=== PATIENT | female | born 1990 | race Caucasian/White ===

== ENCOUNTER 2019-05-01 11:10 | Outpatient (CLI) | payer BC ==
[~2019-05-01] VITALS: Ht 152.4 cm; Wt 67.7 kg
[2019-05-01 11:24] VITALS: Ht 152.4 cm; Wt 67.7 kg
--- NOTE | 2019-05-01 13:21 | TRIAGE ---
OB Triage Datetime Report Generated by CPN: 05/01/2019 13:20 Datetime: 05/01/2019 13:00 Stage of : OB Triage Maternal Assessment Level of Consciousness: Keenly Alert, Responsive DTR's/Clonus: DTRs 1+ Headache: Denies Breath Sounds, Left: Clear and Equal Breath Sounds, Right: Clear and Equal Nausea/Vomiting: Denies RUQ Epigastric Pain: Denies Labor Evaluation Frequency: IRREGULAR Monitor Mode: External Duration (sec)2399: 50-90 Quality: Mild Pattern: Normal: <= 5 Contractions in 10 Minutes Resting Tone [place]: Relaxed Heart Rate FHR Baseline Rate: 130 Monitor Mode: External US Variability: Moderate 6-25 bpm Accelerations: 15X15 Decelerations: None Category: Category I Pain Assessment Pain Scale: 0 Pain Presence: None/Denies Pain Type: N/A Pain Goal: 3 Membrane Status: Intact Datetime: 05/01/2019 11:59 Maternal Assessment Level of Consciousness: Keenly Alert, Responsive DTR's/Clonus: DTRs 1+ Headache: Denies Blurred Vision: No Respiratory Effort: Unlabored Breath Sounds, Left: Clear and Equal Breath Sounds, Right: Clear and Equal Nausea/Vomiting: Denies RUQ Epigastric Pain: Denies Facial Edema: None Labor Evaluation Frequency: X4 Monitor Mode: External Duration (sec)2399: 50-90 Quality: Mild Pattern: Normal: <= 5 Contractions in 10 Minutes Resting Tone [place]: Relaxed Heart Rate FHR Baseline Rate: 130 Monitor Mode: External US Variability: Moderate 6-25 bpm Accelerations: 15X15 Decelerations: None Category: Category I Pain Assessment Pain Scale: 0 Pain Presence: None/Denies Pain Type: N/A Pain Goal: 3 Membrane Status: Intact Datetime: 05/01/2019 11:16 EGA: 39.4 Datetime: 05/01/2019 11:15 Vaginal Exam Dilatation (cms): 1.0 Effacement (%): 50 Station: -2 Exam By: STU MACHUCA Vaginal Bleeding: None Cervix, Consistency: Soft Cervix, Position: Anterior Presentation 'A': Cephalic Datetime: 05/01/2019 11:10 Assessment Type: Triage Maternal Assessment Level of Consciousness: Keenly Alert, Responsive DTR's/Clonus: DTRs 2+; No Clonus Headache: Denies Blurred Vision: No Respiratory Effort: Unlabored; Regular Rhythm; Equal Expansion Breath Sounds, Left: Clear and Equal Breath Sounds, Right: Clear and Equal Nausea/Vomiting: Denies RUQ Epigastric Pain: Denies Lower Extremities Edema: None Degree: None Upper Extremities Edema: None Degree: None Facial Edema: None Fall Risk Assessment History of Falling: (0) No Secondary Diagnosis: (0) No Ambulatory Aid: (0) Bedrest/Nurse Assist IV Therapy: (0) No Gait: (0) Normal/Bedrest/Immobile Mental Status: (0) Oriented to Own Ability Fall Score: 0 Fall Risk Score Definition: No Risk: No action required Datetime: 05/01/2019 11:02 Time of Arrival: 05/01/2019 11:02 Arrived By: Ambulatory Arrived From: Home Chief Complaint: PT CAME IN FROM HOME C/O SPOTTING AFTER HAVING SEX LAST NIGHT. PT STATES + M OVEMNT AND DENIES ANY UC'S AT THIS TIME Movement: Present Contractions: Denies/Absent Rupture of Membranes: Denies Vaginal Discharge: Denies Recent Sexual Intercouse: Denies Abdominal Trauma: Not Applicable Patient Complaints: Other Additional Patient Complaints: NONE Initial Plan: NST AND BPP
== END 2019-05-01 13:10 | disposition home or self-care (01) ==
LOC: OBT 11:10 → L-D 11:12 → OBT 13:10
PROVIDERS: ATTEND Obstetrics & Gynecology
DX: O62.9 Abnormality of forces of labor, unspecified (principal); Z3A.39 39 weeks gestation of pregnancy
CPT/HCPCS: 76818; Z7500; G0463

== ENCOUNTER 2019-05-02 00:14 | Inpatient (IN) | payer BC ==
--- NOTE | 2019-05-01 15:50 | PN ---
Triage Information Date/Time Subjective: 29 year-old G1 at 39.4 weeks gestation presents to triage with contractions. Objective: Vitals: stable General: No apparent distress Abdomen: Gravid SVE: Closed per RN x2 BPP 06/01 Assessment/Plan: 1. Contractions-resolved. expectant Disposition: discharge to home Reason for visit: Uterine contractions Weeks of Gestation 39.4 /Para 1 MILESTWESLEY,WILLOW RICH May 01, 2019 15:50
[~2019-05-02] VITALS: Ht 152.4 cm; Wt 86.9 kg
[2019-05-02 00:25] VITALS: BP 114/75; PULSE 78; RESP 16
[2019-05-02] MEDS ORDERED: LACTATED RINGER'S 1,000 ML IV PRN (00:54)
--- NOTE | 2019-05-02 00:58 | TRIAGE ---
OB Triage Datetime Report Generated by CPN: 05/02/2019 00:58 Datetime: 05/02/2019 00:49 Membrane Status: Ruptured Datetime: 05/02/2019 00:45 Stage of : OB Triage Monitor Mode: External FHR Baseline Rate: 165 Monitor Mode: External US FHR Baseline Changes: Tachycardia Variability: Moderate 6-25 bpm Accelerations: 15X15 Decelerations: None Dilatation (cms): 2.0 Effacement (%): 70 Station: -2 Exam By: Rhonda Dempsey Membrane Status: Ruptured Membranes Rupture Method: Spontaneous Amniotic Fluid Color: Clear Amniotic Fluid Amount: Moderate Amniotic Fluid Odor: Normal Vaginal Bleeding: None Pool: Positive Cervix, Consistency: Soft Cervix, Position: Posterior Presentation 'A': Cephalic Datetime: 05/02/2019 00:19 Stage of : OB Triage Level of Consciousness: Keenly Alert, Responsive Headache: Denies Blurred Vision: No Nausea/Vomiting: Denies RUQ Epigastric Pain: Denies Facial Edema: None Monitor Mode: External Resting Tone [place]: Relaxed Monitor Mode: External US Comments: FHR 165 Pain Scale: 6 Pain Presence: Intermittent Pain Type: Cramping Pain Location: Abdomen; Back Datetime: 05/02/2019 00:14 Time of Arrival: 05/02/2019 00:05 EGA: 39.5 Arrived By: Ambulatory Arrived From: Home Chief Complaint: c/o ucs and SROM at 2200 Contractions: Regular Time Contractions Began: 05/01/2019 23:00 Rupture of Membranes: Unsure Vaginal Bleeding: None Vaginal Discharge: Present Recent Sexual Intercouse: Denies Abdominal Trauma: Not Applicable Patient Complaints: Contractions Time Provider Notified: 05/02/2019 00:45 Provider Notified: Dr Brown Initial Plan: TYRON LOPEZ
[2019-05-02] MEDS ORDERED: OXYTOCIN 30 UNITS/LR 500 ML IV SCH ×2 (01:00)
[2019-05-02] MEDS ORDERED: CARBOPROST 250 MCG INJ IM PRN ×2 (01:00→15:00)
[2019-05-02] MEDS ORDERED: LIDOCAINE 1% (MPF) 30 ML INJ INJ PRN (01:00)
[2019-05-02] MEDS ORDERED: IBUPROFEN 600 MG TAB PO PRN (01:00)
[2019-05-02] MEDS ORDERED: MINERAL OIL LIGHT 10 ML VIAL TOP ONE (01:00)
[2019-05-02] MEDS ORDERED: METHYLERGONOVINE 0.2 MG INJ IM PRN ×2 (01:00→15:00)
[2019-05-02] MEDS ORDERED: OXYTOCIN 30 UNITS/LR 500 ML IV PRN ×2 (01:00→15:00)
[2019-05-02] MEDS ORDERED: MISOPROSTOL 200 MCG TAB PR PRN ×2 (01:00→15:00)
[2019-05-02] MEDS ORDERED: BUTORPHANOL 2 MG INJ IV PRN ×2 (01:00)
[2019-05-02] MEDS: LACTATED RINGER'S 1,000 ML IV SCH ×4 (01:25→13:12)
--- NOTE | 2019-05-02 06:21 | PREAC ---
Date/Time of Note Date/Time of Note DATE: 05/02/19 TIME: 06:20 Anesthesia Eval and Record Evaluation Time Pre-Procedure Interview DATE: 05/02/19 TIME: 06:20 Age 29 Sex female NPO: 8 hrs Preoperative diagnosis IUP Planned procedure L&D Epidural Past Medical History Past Medical History: Includes GI: Obesity : : Surgery & Anesthesia Issues No known issue Meds Anticoagulation: No Beta Olivier within 24 hr: No Reason Beta Olivier not given: Pt. not on B-Olivier No Active Prescriptions or Reported Meds Current Medications Lactated Ringer's 1,000 ml @ 125 mls/hr Q8H IV Last administered on 05/02/19at 01:25; Admin Dose 125 MLS/HR; Start 05/02/19 at 00:54 Butorphanol Tartrate (Stadol) 1 mg Q2H PRN IV .PAIN SCALE 1-5; Start 05/02/19 at 01:00 Butorphanol Tartrate (Stadol) 2 mg Q2H PRN IV .PAIN SCALE 6-10 Last administered on 05/02/19at 04:26; Admin Dose 2 MG; Start 05/02/19 at 01:00 Lidocaine (Xylocaine 1% (Mpf)) 30 ml ONCE PRN INJ .EPISIOTOMY; Start 05/02/19 at 01:00 Oxytocin/Lactated Ringer's 500 ml @ 500 mls/hr ONCE POST IV ; Start 05/02/19 at 01:00 Oxytocin/Lactated Ringer's 500 ml @ 125 mls/hr POST IV ; Start 05/02/19 at 01:00 Ibuprofen (Motrin) 600 mg ONCE PRN PO .PAIN 1-5; Start 05/02/19 at 01:00 Lactated Ringer's 1,000 ml @ 2,000 mls/hr Q30M PRN IV .ANESTHESIA Last admi nistered on 05/02/19at 06:08; Admin Dose 2,000 MLS/HR; Start 05/02/19 at 00:54 Oxytocin/Lactated Ringer's 500 ml @ 0 mls/hr ONCE PRN IV .VAGINAL BLEEDING; Start 05/02/19 at 01:00 Methylergonovine Maleate (Methergine) 0.2 mg ONCE PRN IM .VAGINAL BLEEDING; Start 05/02/19 at 01:00 Carboprost Tromethamine (Hemabate) 250 mcg ONCE PRN IM .VAGINAL BLEEDING; Start 05/02/19 at 01:00 Misoprostol (Cytotec) 1,000 mcg ONCE PRN MO .VAGINAL BLEEDING; Start 05/02/19 at 01:00 Meds reviewed: Yes Allergies Coded Allergies: No Known Allergy (Unverified , 05/02/19) Allergies Reviewed: Yes Labs/Studies Labs Reviewed: Reviewed by anesthesiologist Result Diagram: 05/02/19 0120 Laboratory Tests 05/02/19 01:20 Blood Bank Test 05/02/19 01:20 Antibody Screen NEGATIVE Blood Type O POSITIVE Rh Immune Globulin Candidate NO test: Positive Studies: ECG Pre-procedure Exam Last vitals Vital Signs Date Temp Pulse Resp B/P (MAP) Pulse Ox O2 O2 Flow FiO2 Time Delivery Rate 05/02/19 98.5 78 16 114/75 Room Air 00:25 (88) Airway: Adequate mouth opening, Adequate thyromental dist Mallampati: Mallampati II Teeth: Normal Lung: Normal Heart: Normal ASA Physical Status ASA physical status: 2 Emergency: None Planned Anesthetic Neuraxial: Epidural Planned Pain Management Epidural, Parenteral pain med Pre-operative Attestations Prior to commencing anesthesia and surgery, the patient was re-evaluated, there was verification of: *The patient's identity *The results of appropriate recent lab work and preoperative vital signs *The above evaluation not changing prior to induction *Anesthetic plan, risk benefits, alternative and complications discussed with patient/family; questions answered; patient/family understands, accepts and wishes to proceed. JULIUS LONDON MD May 02, 2019 06:21
[2019-05-02] MEDS ORDERED: FENTAnyl 2MCG/ML-ROPIV 0.2% 100 ML ONE (06:22)
[2019-05-02] MEDS ORDERED: ONDANSETRON 4 MG INJ IV PRN ×3 (06:30→21:00)
[2019-05-02] MEDS ORDERED: DIPHENHYDRAMINE 50 MG INJ IV PRN ×3 (06:30→21:00)
[2019-05-02] MEDS ORDERED: NALOXONE (0.4 MG/ML) INJ IV PRN ×2 (06:30→21:00)
[2019-05-02] MEDS ORDERED: FENTAnyl 2MCG/ML-ROPIV 0.2% 100 ML BAG EPI SCH (06:30)
[2019-05-02] MEDS ORDERED: TERBUTALINE 1 ML ONE (14:35)
[2019-05-02] MEDS ORDERED: LACTATED RINGER'S 1,000 ML IV ONE (14:36)
--- NOTE | 2019-05-02 14:36 | PREAC ---
Date/Time of Note Date/Time of Note DATE: 05/02/19 TIME: 14:35 Anesthesia Eval and Record Evaluation Time Pre-Procedure Interview DATE: 05/02/19 TIME: 14:35 Age 29 Sex female NPO: 8 hrs Preoperative diagnosis IUP Planned procedure primary section. intolerance to labor Past Medical History Past Medical History: None Surgery & Anesthesia Issues No known issue Meds Anticoagulation: No Beta Olivier within 24 hr: No Reason Beta Olivier not given: Pt. not on B-Olivier No Active Prescriptions or Reported Meds Current Medications Lactated Ringer's 1,000 ml @ 125 mls/hr Q8H IV Last administered on 05/02/19at 13:12; Admin Dose 125 MLS/HR; Start 05/02/19 at 00:54 Butorphanol Tartrate (Stadol) 1 mg Q2H PRN IV .PAIN SCALE 1-5; Start 05/02/19 at 01:00 Butorphanol Tartrate (Stadol) 2 mg Q2H PRN IV .PAIN SCALE 6-10 Last administered on 05/02/19at 04:26; Admin Dose 2 MG; Start 05/02/19 at 01:00 Lidocaine (Xylocaine 1% (Mpf)) 30 ml ONCE PRN INJ .EPISIOTOMY; Start 05/02/19 at 01:00 Oxytocin/Lactated Ringer's 500 ml @ 500 mls/hr ONCE POST IV ; Start 05/02/19 at 01:00 Oxytocin/Lactated Ringer's 500 ml @ 125 mls/hr POST IV ; Start 05/02/19 at 01:00 Ibuprofen (Motrin) 600 mg ONCE PRN PO .PAIN 1-5; Start 05/02/19 at 01:00 Lactated Ringer's 1,000 ml @ 2,000 mls/hr Q30M PRN IV .ANESTHESIA Last administered on 05/02/19at 06:08; Admin Dose 2,000 MLS/HR; Start 05/02/19 at 00:54 Oxytocin/Lactated Ringer's 500 ml @ 0 mls/hr ONCE PRN IV .VAGINAL BLEEDING; Start 05/02/19 at 01:00 Methylergonovine Maleate (Methergine) 0.2 mg ONCE PRN IM .VAGINAL BLEEDING; Start 05/02/19 at 01:00 Carboprost Tromethamine (Hemabate) 250 mcg ONCE PRN IM .VAGINAL BLEEDING; Start 05/02/19 at 01:00 Misoprostol (Cytotec) 1,000 mcg ONCE PRN NM .VAGINAL BLEEDING; Start 05/02/19 at 01:00 Naloxone HCl (Narcan) 0.1 mg Q2M PRN IV .RESP RATE; Start 05/02/19 at 06:30; Stop 05/03/19 at 06:29 Diphenhydramine HCl (Benadryl) 25 mg Q6H PRN IV .ITCHING; Start 05/02/19 at 06:30; Stop 05/03/19 at 06:29 Ondansetron HCl (Zofran Inj) 4 mg Q6H PRN IV .NAUSEA/VOMITING; Start 05/02/19 at 06:30; Stop 05/03/19 at 06:29 Fentanyl/ Ropivacaine 100 ml EPIDURAL INFUSION EPI Last administered on 05/02/19at 13:30; Admin Dose 100 ML; Start 05/02/19 at 06:30 Meds reviewed: Yes Allergies Coded Allergies: No Known Allergy (Unverified , 05/02/19) Allergies Reviewed: Yes Labs/Studies Labs Reviewed: Reviewed by anesthesiologist Result Diagram: 05/02/19 0120 Laboratory Tests 05/02/19 01:20 Blood Bank Test 05/02/19 01:20 Antibody Screen NEGATIVE Blood Type O POSITIVE Rh Immune Globulin Candidate NO test: N/A Pre-procedure Exam Last vitals Vital Signs Date Temp Pulse Resp B/P (MAP) Pulse Ox O2 O2 Flow FiO2 Time Delivery Rate 05/02/19 98.5 78 16 114/75 Room Air 00:25 (88) Airway: Adequate mouth opening, Adequate thyromental dist Mallampati: Mallampati II Teeth: Normal Lung: Normal Heart: Normal ASA Physical Status ASA physical status: 2 Emergency: E Planned Anesthetic Neuraxial: Epidural Planned Pain Management Epidural, Parenteral pain med Pre-operative Attestations Prior to commencing anesthesia and surgery, the patient was re-evaluated, there was verification of: *The patient's identity *The results of appropriate recent lab work and preoperative vital signs *The above evaluation not changing prior to induction *Anesthetic plan, risk benefits, alternative and complications discussed with patient/family; questions answered; patient/family understands, accepts and wishes to proceed. RONEN GARCIA MD May 02, 2019 14:36
[2019-05-02] MEDS ORDERED: CITRIC ACID/NA CITRATE 30 ML CUP PO ONE (15:00)
[2019-05-02] MEDS ORDERED: METOCLOPRAMIDE 10 MG INJ IV ONE (15:00)
[2019-05-02] MEDS ORDERED: FAMOTIDINE 20 MG INJ IV ONE (15:00)
[2019-05-02] MEDS ORDERED: CEFAZOLIN 2 GM/50 ML (PMX) 50 ML IVPB SCH (15:00)
[2019-05-02] MEDS ORDERED: TERBUTALINE 1 MG/ML INJ SC ONE ×2 (15:00)
--- NOTE | 2019-05-02 15:01 | QN ---
Documentation Comment Category 2 tracing on Amniocentesis ,Cx 6-7 cm (Remote from Delivery) C/section extensively discussed with the patient several times and Two macedonian speaking Nurse ,Esperanza Bueno Translated every words Patient and her are refusing the c/section and They understand that their decision may cause damage, Cerebral palsy or RUBY DANIELSON M.D. May 02, 2019 15:01
[2019-05-02] MEDS ORDERED: morphine SULFATE/PF (10 MG/10 ML) INJ ONE (15:47)
[2019-05-02] MEDS ORDERED: LIDOCAINE 1.5%/EPI MPF (SDV) 30 ML VIAL ONE (15:47)
[2019-05-02] MEDS ORDERED: NA BICARBONATE 8.4% 50 ML SYG ONE (16:03)
[2019-05-02] MEDS ORDERED: MIDAZOLAM 1 MG/ML 2 ML INJ ONE (16:04)
[2019-05-02] MEDS ORDERED: PHENYLephrine (100 MCG/ML) 10ML SYG ONE (16:05)
[2019-05-02] MEDS ORDERED: OXYTOCIN 30 UNITS/LR 500 ML IV ONE (16:20)
[2019-05-02] MEDS ORDERED: PROCHLORPERAZINE 10 MG INJ IV PRN (16:30)
[2019-05-02] MEDS ORDERED: KETOROLAC 30 MG INJ IV PRN (16:30)
[2019-05-02] MEDS ORDERED: MEPERIDINE 25 MG INJ IV PRN (16:30)
[2019-05-02] MEDS ORDERED: FENTAnyl 50 MCG/ML VIAL IV PRN ×3 (16:30)
[2019-05-02] MEDS ORDERED: HYDROmorphONE 1 MG/5 ML IV SYRINGE IV PRN ×3 (16:30)
--- NOTE | 2019-05-02 16:34 | OPPN ---
Date/Time of Note Date/Time of Note DATE: 05/02/19 TIME: 16:32 Operative Report Planned Procedure Procedure date May 02, 2019 Procedure(s) primary c/section Performed by see signature line Therapist Physical: RUBY DANIELSON M.D. 2nd Therapist Physical none Anesthesiologist: RONEN GARCIA MD Pre-procedure diagnosis Category 2 tracing Remote from Delivery [id number] Anesthesia Type: [id number] epidural Post-Procedure Post-procedure diagnosis same Findings Live Baby [], Apgars [] and [], weight [], position [], [] presentation []cord. Estimated Blood Loss: 500 - 600 mls Specimen(s) none Grafts/Implant(s) none Complication(s) none RUBY DANIELSON M.D. May 02, 2019 16:34
--- NOTE | 2019-05-02 16:39 | HP ---
Date/Time of Note Date/Time of Note DATE: 05/02/19 TIME: 16:37 OB - History Hx of Present Free Text/Dictation @39+wks GA in labor : 1 Para: 0 Care: Good Care Ultrasounds: Normal mid trimester US Obstetrical Complications: None Medical Complications: None Past Family/Social History * Past Medical, Surgical, Family and Obstetric Histories reviewed from chart. OB Admission Exam Vital Signs Vital Signs Vital Signs Date Temp Pulse Resp B/P (MAP) Pulse Ox O2 O2 Flow FiO2 Time Delivery Rate 05/02/19 98.5 78 16 114/75 Room Air 00:25 (88) Physical Exam Abdomen: WNL Extremities: Normal Cervical Dilatation: 6cm Effacement: 75% Station: -1 Membranes: Ruptured Heart Rate: 140's Accelerations: Accelerations Present Decelerations: Late Decelarations Varibility: Minimum Contractions on Admission: 6-10 Minutes Apart Last 72 hours Lab Results CBC & BMP 05/02/19 01:20 OB Assessment/Plan Reason for admission: observation Other Assessment: PMH Denies PSH Denies Allergy NKDA Plan: Section Other plan: Category 2 tracing Remote from Delivery prolonged Bradycardia (Receive AminoRUBY Lenz M.D. May 02, 2019 16:39
--- NOTE | 2019-05-02 16:47 | PAC ---
Date/Time of Note Date/Time of Note DATE: 05/02/19 TIME: 16:46 Post-Anesthesia Notes Post-Anesthesia Note Last documented vital signs Vital Signs Date Temp Pulse Resp B/P (MAP) Pulse Ox O2 O2 Flow FiO2 Time Delivery Rate 05/02/19 98.5 78 16 114/75 Room Air 00:25 (88) Activity: WNL Respiratory function: WNL Cardiovascular function: WNL Mental status: Baseline Pain reasonably controlled: Yes Hydration appropriate: Yes Nausea/Vomiting absent: Yes Comments BP: 100/60 HR: 105 RR: 15 T: 98 SaO2: 96% RONEN HAWTHORNE MD May 02, 2019 16:47
[2019-05-02 20:50] VITALS: BP 122/65; PULSE 100; RESP 18
[2019-05-02] MEDS ORDERED: NALBUPHINE HCL (10 MG/1 ML) INJ IV PRN (21:00)
[2019-05-02] MEDS ORDERED: ZOLPIDEM 5 MG TAB PO PRN (21:00)
[2019-05-02] MEDS ORDERED: HYDROmorphONE 0.5 MG/0.5 ML SYG IV PRN ×2 (21:00)
--- NOTE | 2019-05-02 23:05 | OPR ---
DATE OF OPERATION: 05/02/2019 PREOPERATIVE DIAGNOSIS: Category 2 tracing, prolonged bradycardia, remote from the delivery. POSTOPERATIVE DIAGNOSIS: Category 2 tracing, prolonged bradycardia, remote from the delivery. OPERATION PERFORMED: Primary section. SURGEON: Tima Danielson MD PACKING LINE OPERATOR: Abram. TYPE OF ANESTHESIA: Epidural. ANESTHESIOLOGIST: Dr. Fisher. ESTIMATED BLOOD LOSS: 600 mL. TECHNIQUE: The patient was taken to the operating room where epidural anesthesia was found to be valentine quate. The patient was placed in supine position. After prep and drape, a Pfannenstiel incision was made 2 cm above the symphysis pubis. It was extended to the underlying fascia. Fascia was nicked i n the midline. Fascial incision was extended bilaterally. Fascia was from underlying musc les. Muscle was in the midline. Peritoneum was entered sharply. Peritoneal incision was extended bilaterally. Bladder blade was placed inside the abdominal cavity. Lower uterine segment i ncision was made. Baby was delivered vertex, handed to the NICU team. Cord blood sent. Placenta wa s removed manually. The uterus was exteriorized. Intrauterine cavity was cleaned using 2 sponges. The uterine incision was closed in 2 layers using #0 PDS sutures. Gutters were cleaned. Uterus was inserted inside the abdominal cavity. Peritoneum and muscle were reapproximated using 2-0 chromic il tures. Fascia was closed in a running nonlocking fashion using 0 looped PDS sutures. Subcutaneous t issue was closed using plain sutures. The skin was closed using 0 Dermabond. The patient tolerated the procedure well and was transferred to recovery in stable condition. There was no complication re garding this surgery. Dictated By: TIMA DANIELSON MD RG/NTS Conf#: [id number] DID#: [id number] CC: LOIDA ESQUIVEL MD;*EndCC*
[2019-05-03] VITALS: BP 116/62; PULSE 100; RESP 18
[2019-05-03] MEDS: KETOROLAC 30 MG INJ IV PRN ×2 (01:51→11:58)
[2019-05-03] MEDS ORDERED: OXYTOCIN 30 UNITS/LR 500 ML IV SCH (03:04)
[2019-05-03] MEDS ORDERED: OXYTOCIN 30 UNITS/LR 500 ML IV PRN (03:30)
[2019-05-03] MEDS ORDERED: MISOPROSTOL 200 MCG TAB PR PRN (03:30)
[2019-05-03] MEDS ORDERED: CARBOPROST 250 MCG INJ IM PRN (03:30)
[2019-05-03] MEDS ORDERED: METHYLERGONOVINE 0.2 MG INJ IM PRN (03:30)
[2019-05-03] MEDS ORDERED: NACL 0.9% 3 ML SYG IV SCH (03:30)
[2019-05-03 04:00] VITALS: BP 110/58; PULSE 98; RESP 19
[2019-05-03] MEDS: CEFAZOLIN 1 GM/50 ML (PMX) 50 ML IVPB SCH ×3 (05:01→20:52)
[2019-05-03] MEDS: SENNA/DOCUSATE NA (8.6MG/50MG) TAB PO SCH ×3 (05:01→20:52)
[2019-05-03 08:00] VITALS: BP 131/77; PULSE 74; RESP 18
--- NOTE | 2019-05-03 09:05 | PAC ---
Date/Time of Note Date/Time of Note DATE: 05/03/19 TIME: 09:04 Post-Anesthesia Notes Post-Anesthesia Note Last documented vital signs Vital Signs Date Temp Pulse Resp B/P (MAP) Pulse Ox O2 O2 Flow FiO2 Time Delivery Rate 05/03/19 98.5 74 18 131/77 98 Room Air 08:00 (95) Activity: WNL Respiratory function: WNL Cardiovascular function: WNL Mental status: Baseline Pain reasonably controlled: Yes Hydration appropriate: Yes Nausea/Vomiting absent: Yes Comments BP:112/56, P:78, Spo2:100%, T:98,8 JULIUS LONDON MD May 03, 2019 09:04
[2019-05-03 12:00] VITALS: BP 105/58; PULSE 75; RESP 18
--- NOTE | 2019-05-03 13:20 | PN ---
Date/Time of Note Date/Time of Note DATE: 05/03/19 TIME: 13:17 OB Subjective Subjective Subjective POD#1 Patient is doing well. She denies nausea, vomiting, shortness of breath, chest pain, headache. She has been ambulating without difficulty, tolerating regular diet. Pain is well controlled on current medications OB Objective Objective Objective VS - Last 72 Hours, by Label Date Temp Pulse Resp B/P (MAP) Pulse Ox O2 O2 Flow FiO2 Time Delivery Rate 05/03/19 98.5 74 18 131/77 98 Room Air 08:00 (95) 05/03/19 98.4 98 19 110/58 95 Room Air 04:00 (75) 05/03/19 98.6 100 18 116/62 96 Room Air 00:00 (80) 05/02/19 99.0 100 18 122/65 96 Room Air 20:50 (84) 05/02/19 98.5 78 16 114/75 Room Air 00:25 (88) General: AAO X 3, comfortable, NAD, appropriate mood and affect. ABD: +BS. Soft, non-tender. Uterus 2 cm below umbilicus Incision: Clear, dry, intact. No erythema, drainage or induration. Flank: No CVA tenderness (B/L) LE: Mild edema. No clubbing, cyanosis, thigh or calf tenderness (B/L). Homans 'sign is negative OB Assessment/Plan Other plan: 29 years old 1 para 1-0-0-1 s/p primary delivery for nonreassuring heart rate at 39 weeks and 5 days. POD#1 - AF, VSS - Baby is doing well, at bed side. She is bonding well - Contraception methods with R/B/A/FR discussed - Continue care - H/H: 10.8/32.7 LOIDA ESQUIVEL May 03, 2019 13:20
[2019-05-03 16:00] VITALS: BP_SYST 106; BP_SYST 121; BP_DIAS 61; BP_DIAS 73; PULSE 73; PULSE 92; RESP 18
[2019-05-03] MEDS: OXYCODONE/ACETAMINOPHEN (5/325) TAB PO PRN (16:50)
[2019-05-03 20:15] VITALS: BP 112/68; PULSE 100; RESP 17
[2019-05-04] MEDS: IBUPROFEN 600 MG TAB PO SCH ×4 (00:15→17:38)
[2019-05-04 03:51] VITALS: BP 108/60; PULSE 95; RESP 18
[2019-05-04 08:15] VITALS: BP 109/70; PULSE 63; RESP 18
[2019-05-04] MEDS: OXYCODONE/ACETAMINOPHEN (5/325) TAB PO PRN ×2 (08:50→21:19)
[2019-05-04] MEDS: SENNA/DOCUSATE NA (8.6MG/50MG) TAB PO SCH ×2 (08:50→21:19)
[2019-05-04 16:04] VITALS: BP 101/69; PULSE 66; RESP 18
--- NOTE | 2019-05-04 17:13 | QN ---
Documentation Comment Postoperative day #2, status post for nonreassuring heart tracing Pain well controlled with p.o. pain medication. Ambulating. Tolerated regular diet. Passed flatus. Breast-feeding. Complaint of low back pain. Urinated. Vaginal bleeding in the amount of menses. Physical examination: General appearance: Alert and oriented x4 does not appear to be in acute distress Abdomen: Soft, fundus palpable 2 cm below the umbilicus. Appropriate tenderness in the incision noted. No evidence of drainage from the incision, hematoma, ecchymosis or erythema Back: No evidence of tenderness in the spine noted. Extremities: No calf tenderness, no click no edema no cord palpable VS - Last 72 Hours, by Label Date Temp Pulse Resp B/P (MAP) Pulse Ox O2 O2 Flow FiO2 Time Delivery Rate 05/04/19 97.7 66 18 101/69 Room Air 16:04 (80) 05/04/19 98.6 63 18 109/70 Room Air 08:15 (83) 05/04/19 98.0 95 18 108/60 Room Air 03:51 (76) 05/03/19 98.3 100 17 112/68 Room Air 20:15 (83) 05/03/19 98.3 92 18 106/61 Room Air 16:00 (76) 05/03/19 98.3 75 18 105/58 Room Air 12:00 (74) 05/03/19 98.5 74 18 131/77 98 Room Air 08:00 (95) 05/03/19 98.4 98 19 110/58 95 Room Air 04:00 (75) 05/03/19 98.6 100 18 116/62 96 Room Air 00:00 (80) 05/02/19 99.0 100 18 122/65 96 Room Air 20:50 (84) 05/02/19 98.5 78 16 114/75 Room Air 00:25 (88) CBC & BMP 05/02/19 01:20 05/03/19 07:20 Assessment: Postoperative day #2, status post section for nonreassuring heart tracing Doing well Anemia, asymptomatic, postop No back pain, musculoskeletal. Advised about NSAIDs with warm compress routine postop care PAPA HOLMAN MD May 04, 2019 17:13
[2019-05-04 20:40] VITALS: BP 101/69; PULSE 69; RESP 18
[2019-05-05 04:00] VITALS: BP 99/55; PULSE 71; RESP 18
[2019-05-05] MEDS: IBUPROFEN 600 MG TAB PO SCH ×3 (05:38→11:28)
[2019-05-05 07:40] VITALS: BP 99/55; PULSE 75; RESP 17
[2019-05-05] MEDS ORDERED: DIPHTH/TET/ACEL PERTUSS (ADULT) 0.5 ML VIAL IM* ONE (09:00)
[2019-05-05] MEDS: SENNA/DOCUSATE NA (8.6MG/50MG) TAB PO SCH (09:43)
--- NOTE | 2019-05-05 12:11 | QN ---
Documentation Comment POD#3 is stable afebrile +Flatus No VB +voids VS stable Gen NAD Abd soft NT ND Incision intact Genitalia No blood at perineum -->Ambulation --->discharge RUBY Lentz M.D. May 05, 2019 12:11
--- NOTE | 2019-05-05 12:12 | DS ---
Date/Time of Note Date/Time of Note DATE: 05/05/19 TIME: 12:11 Discharge Summary Admission/Discharge Info Admit Date/Time May 02, 2019 at 00:45 Discharge Date/Time 05/05/2019 Discharge Diagnosis Patient Condition: Good Hospital Course uneventful Home Meds No Active Prescriptions or Reported Meds Primary Care Provider RUBY Nance M.D. May 05, 2019 12:12
--- NOTE | 2019-05-06 14:26 | DELSUM ---
Delivery Summary A-C Datetime Report Generated by CPN: 05/06/2019 14:26 DELIVERY PERSONNEL [employer] Gunner: Ruiz, Gaby MATERNAL INFORMATION Delivery Anesthesia: Epidural Medications in Delivery: see anesthesia Delivery QBL (ml): 600 Placenta Cultured: No Maternal Complications: None LABOR SUMMARY EDC: 05/04/2019 00:00 No. Babies in Womb: 1 Attempted: No Labor Anesthesia: Epidural LABOR INFORMATION Reason for Induction: Not Applicable Onset of Labor: 05/01/2019 23:00 Group B Beta Strep: Negative Steroids Given: None Reason Steroids Not Administered: Not Applicable MEMBRANES Membranes Rupture Method: Spontaneous Rupture of Membranes: 05/01/2019 22:00 Length of Rupture (hr): 18.00 Amniotic Fluid Color: Clear Amniotic Fluid Amount: Moderate Amniotic Fluid Odor: Normal STAGES OF LABOR Stage 3 hr: 0 Stage 3 min: 3 Total Time in Labor hr: 17 Total Time in Labor min: 3 CSECTION DELIVERY Primary Indication: Nonreassuring Stat Secondary Indication: N/A CSection Urgency: Emergency CSection Incidence: Primary Labor: Labor Elective: Nonelective CSection Incision: Lower Uterine Transverse BABY A INFORMATION Delivery Date/Time: 05/02/2019 16:00 Method of Delivery: Born in Route : No : N/A Forceps: N/A Vacuum Extraction: N/A Shoulder Dystocia : N/A SHOULDER DYSTOCIA BABY A Infant Delivery Date/Time: 05/02/2019 16:00 PRESENTATION/POSITION BABY A Presentation: Cephalic Cephalic Presentation: Vertex Vertex Position: Left Occipital Anterior Breech Presentation: N/A PLACENTA INFORMATION BABY A Placenta Delivery Time : 05/02/2019 16:03 Placenta Method of Delivery: Manual Removal Placenta Status: Delivered SCORES BABY A Heart Rate 1 min: >100 bpm Resp Effort 1 min: Good Cry Reflex Irritability 1 min: Cough/Sneeze/Pulls Away Muscle Tone 1 min: Active Motion Color 1 min: Body [place], Extremit Blue Resuscitation Effort 1 min: Tactile Stimulation SCORE 1 MIN: 9 Heart Rate 5 min: >100 bpm Resp Effort 5 min: Good Cry Reflex Irritability 5 min: Cough/Sneeze/Pulls Away Muscle Tone 5 min: Active Motion Color 5 min: Body [place], Extremit Blue SCORE 5 MIN: 9 INFORMATION BABY A Gestational Age at Delivery: 39.5 Gestational Status: Full Term- 39- 40.6 Weeks Outcome : Liveborn, with signs of life Condition : Stable Sex: Female IDENTIFICATION/MEDS BABY A ID Band Number: [id number] ID Band Location: Right Arm; Left Leg Sensor Applied: Yes Sensor Number: [id number] Sensor Location : Cord Clamp Vitamin K Given : Not Given Erythromycin Given: Not Given WEIGHT/LENGTH BABY A Infant Birthweight (gm): 2985 Infant Weight (lb): 6 Infant Weight (oz): 9 Length (in): 20.75 Length (cm): 52.71 CORD INFORMATION BABY A No. Cord Vessels: 3 Nuchal Cord : N/A Cord Blood Taken: Yes Suction: Mouth; Nose ASSESSMENT BABY A Complications: Multiple Late Decels Physical Findings at Delivery: Within Normal Limits Infant Respirations: Appears Normal Scarfing Machine Operator/ALS Called : No Infant Care By: Mabel CAMACHO Transferred To: Remains with Mother
== END 2019-05-05 14:26 | disposition home or self-care (01) | DRG 788 ==
LOC: OBT 00:14 → L-D 00:15 → OBT 00:45 → L-D 15:45 → PP1 20:34
PROVIDERS: ADMIT Obstetrics & Gynecology; ATTEND Obstetrics & Gynecology
PROC: 10D00Z1 Extraction of Products of Conception, Low, Open Approach (ICD-10-PCS; principal; 2019-05-02 16:00)
DX: O76 Abnormality in fetal heart rate and rhythm complicating labor and delivery (principal); O99.02 Anemia complicating childbirth; D64.9 Anemia, unspecified; Z37.0 Single live birth; Z3A.39 39 weeks gestation of pregnancy
CPT/HCPCS: 62322; 85025; 85610; 85730; 86592; 86850; 86900; 86901; 87340; 99464; G0463; J0595; J0690; J1200; J1885; J2210; J2250; J2274; J2370; J2590; J2765; J3010; J3105; J7120